=== PATIENT | male | born 1985 | race African-American/Black ===

== ENCOUNTER 2017-10-04 02:22 | Emergency (ER) | payer OTHER, SELFPAY | END 2017-10-04 03:52 | disposition home or self-care (01) | LOC: ERS 02:22 | DX: J45.901 Unspecified asthma with (acute) exacerbation (principal); F17.210 Nicotine dependence, cigarettes, uncomplicated; Z79.899 Other long term (current) drug therapy | CPT/HCPCS: 94640; J7620 ==

== ENCOUNTER 2017-10-31 02:54 | Emergency (ER) | payer SELFPAY ==
[2017-10-31] MEDS ORDERED: predniSONE 20 MG TAB ONE (03:14)
== END 2017-10-31 03:32 | disposition home or self-care (01) ==
LOC: SCSER 02:54
DX: J45.901 Unspecified asthma with (acute) exacerbation (principal); F17.210 Nicotine dependence, cigarettes, uncomplicated; Z71.6 Tobacco abuse counseling; Z79.899 Other long term (current) drug therapy
CPT/HCPCS: 99406; J7506; J7620

== ENCOUNTER 2022-04-04 06:57 | Emergency (ER) | payer SELFPAY | END 2022-04-04 08:42 | disposition home or self-care (01) | LOC: ERS 06:57 | DX: J20.9 Acute bronchitis, unspecified (principal); F17.290 Nicotine dependence, other tobacco product, uncomplicated | CPT/HCPCS: 94640 ==